=== PATIENT | male | born 1965 | race African-American/Black ===

== ENCOUNTER → 2024-04-27 14:45 | Outpatient (REF) | payer OTHER, SELFPAY | LOC: HWRAD 14:45 | PROVIDERS: ATTENDING PHYSICIAN Family Medicine | DX: E04.2 Nontoxic multinodular goiter (principal) | CPT/HCPCS: 76536 ==

== ENCOUNTER 2024-07-09 13:59 | Emergency (ER) | payer OTHER, SELFPAY ==
[2024-07-09 14:07] VITALS: BP 167/113
--- NOTE | 2024-07-09 14:15 | ED.GENMED ---
ED Provider Triage
<Pepe Isbell PA-C - Last Filed: 07/09/24 14:15>
-
Patient seen by provider in Triage?: Seen in Triage
59-year-old male presents with persistent left-sided headache
History of Present Illness
<Pepe Isbell PA-C - Last Filed: 07/09/24 14:15>
General
Chief Complaint: Headache
Time Seen by Provider: 07/09/24 14:46
<Rocky Washington PA-C - Last Filed: 07/09/24 21:38>
History of Present Illness
History of Present Illness:
59-year-old male presents the emergency department for evaluation of a persistent headache for the past 5 days, began during the [employer] game which surprised him given that the [place] were handily beating the knee or child's. States that the
headache and then subsequently vomiting began after eating a cheeseburger. Vomiting is not subsided but headache is not resolving despite [id number] migraine medications. No vision changes or neck pain at this time
Review of Systems
<Rocky Washington PA-C - Last Filed: 07/09/24 21:38>
Review of Systems
Allergies reviewed?: Yes
All Other Systems: ROS reviewed and negative except as documented in HPI and ROS
Phy Exam
<Rocky Washington PA-C - Last Filed: 07/09/24 21:38>
Physical Exam
Physical Exam:
GEN: Well appearing, NAD, WDWN
HEENT: Oral mucosa moist, no scleral icterus, no nasal congestion
Cardiac: Regular rate
Lung: No respiratory distress, no tachypnea
MSK: No gross deformity or injuries
Skin: Good color, no pallor or jaundice, no rashes
Neuro: AO x3; CN II-XII grossly intact. BUE strength 5/5 in all white, sensation intact and symmetric. BLE strength 5/5 in all white, sensation intact and symmetric
Psych: Calm, cooperative
Course
<Pepe Isbell PA-C - Last Filed: 07/09/24 14:15>
Orders/Labs/Results
Orders:
Orders
07/09/24 14:12
CT Head W/o Iv Contrast Urgent
Comment:
Reason For Exam: left sided headache
07/09/24 14:56
Complete Blood Count/With Diff Urgent
Comprehensive Metabolic Panel Urgent
07/09/24 15:24
0.9% Sodium Chloride 1000 ml [Nss] 1,000 ml IV BOLUS
07/09/24 17:03
Ketorolac [Toradol] 15 mg IV NOW STA
07/09/24 17:04
Metoclopramide [Reglan] 10 mg IV NOW STA
07/09/24 18:06
Magnesium Sulfate 2 Gram/50 ml [Magnesium Sulfate] 2 gram in 50 ml IV NOW
07/09/24 18:52
Dexamethasone Sod Phosphate [Decadron] 10 mg IV NOW STA
Abnormal Lab Results
07/09/24
14:56
WBC 3.8 L 10^3/uL
(4.8-10.8)
RDW 11.3 L %
(11.5-14.5)
Absolute Lymphs (auto) 1.1 L 10^3/uL
(1.2-3.4)
Monocytes % 11.7 H %
(1.7-9.3)
07/09/24 14:56
07/09/24 14:56
Vital Signs
Initial and Last Documented VS:
Initial Vital Signs
Temp Pulse Resp BP Pulse Ox
98.3 F 77 18 167/113 98
07/09/24 14:07 07/09/24 14:07 07/09/24 14:07 07/09/24 14:07 07/09/24 14:07
Last Documented Vital Signs
Temp Pulse Resp BP Pulse Ox
98.3 F 77 18 167/113 98
07/09/24 14:07 07/09/24 14:07 07/09/24 14:07 07/09/24 14:07 07/09/24 14:07
<Rocky Washington PA-C - Last Filed: 07/09/24 21:38>
Orders/Labs/Results
Orders:
Orders
07/09/24 14:12
CT Head W/o Iv Contrast Urgent
Comment:
Reason For Exam: left sided headache
07/09/24 14:56
Complete Blood Count/With Diff Urgent
Comprehensive Metabolic Panel Urgent
07/09/24 15:24
0.9% Sodium Chloride 1000 ml [Nss] 1,000 ml IV BOLUS
07/09/24 17:03
Ketorolac [Toradol] 15 mg IV NOW STA
07/09/24 17:04
Metoclopramide [Reglan] 10 mg IV NOW STA
07/09/24 18:06
Magnesium Sulfate 2 Gram/50 ml [Magnesium Sulfate] 2 gram in 50 ml IV NOW
07/09/24 18:52
Dexamethasone Sod Phosphate [Decadron] 10 mg IV NOW STA
Abnormal Lab Results
07/09/24
14:56
WBC 3.8 L 10^3/uL
(4.8-10.8)
RDW 11.3 L %
(11.5-14.5)
Absolute Lymphs (auto) 1.1 L 10^3/uL
(1.2-3.4)
Monocytes % 11.7 H %
(1.7-9.3)
07/09/24 14:56
07/09/24 14:56
Vital Signs
Initial and Last Documented VS:
Initial Vital Signs
Temp Pulse Resp BP Pulse Ox
98.3 F 77 18 167/113 98
07/09/24 14:07 07/09/24 14:07 07/09/24 14:07 07/09/24 14:07 07/09/24 14:07
Last Documented Vital Signs
Temp Pulse Resp BP Pulse Ox
98.3 F 77 18 167/113 98
07/09/24 14:07 07/09/24 14:07 07/09/24 14:07 07/09/24 14:07 07/09/24 14:07
<Rocky Washington PA-C - Last Filed: 07/09/24 21:38>
MDM/Problems Addressed
MDM/Problems Addressed:
Workup is reassuring, treated with migraine cocktail with significant improvement in symptoms, discharged in stable condition
<Rocky Washington PA-C - Last Filed: 07/09/24 21:38>
*Critical Care Note
Total Time (30-74mins, 75-104mins- exclusive of procedures): Not Applicable
ED Attending Note
<Pepe Isbell PA-C - Last Filed: 07/09/24 14:15>
-
Portions of this chart may have been created with voice recognition software.� Occasional wrong word or��sound alike� substitutions may have occurred due to the inherent limitations of voice recognition software.
Discharge Plan
Departure
Patient Disposition: Home (Routine Discharge)
Date of Disposition: 07/09/24
Time of Disposition: 18:52
Patient with high blood pressure during this ER visit?: No
Discharge Problem:
Acute headache
Instructions: Headache, Adult (DC)
Referrals:
Nick Damian DO [Family Provider] -
Interventions
Interventions:
*Risk Screen - Suicide Last Done: 07/09/24 19:15
*General Assessment Last Done: 07/09/24 14:07
*Neglect/Abuse Screening Last Done: 07/09/24 14:07
ED- Fall Risk Assessment Last Done: 07/09/24 19:15
*ED COVID-19 Vaccine History Last Done: 07/09/24 14:07
*Nursing Disposition Last Done: 07/09/24 19:15
ED- Neurological Assessment Last Done: 07/09/24 14:57
Discharge Date and Time
Discharge Date/Time: 07/09/24 19:16
Print Language: WELSH
[2024-07-09 15:12] VITALS: BMI 31.6
[2024-07-09 15:23] LABS: % Basophils 0.8 % (0-2); % Eosinophils 1.9 % (0-6); % Immature Granulocytes 0.3 % (0-0.5); % Lymphocytes 30.2 % (20.5-51.1); % Monocytes 11.7 % (1.7-9.3); % Neutrophils 55.1 % (42.2-75.2); Absolute Eosinophils 0.1 10^3/uL (0-0.7); Absolute Lymphocytes 1.1 10^3/uL (1.2-3.4); Absolute Monocytes 0.4 10^3/uL (0.1-0.6); Absolute Neutrophils 2.1 10^3/uL (1.4-6.5); Hematocrit 45.4 % (39.0-52.0); Hemoglobin 15.5 g/dL (13.0-18.0); Mean Corp Hgb Conc. 34.1 g/dL (33.0-37.0); Mean Corpuscular Hgb 30.8 pg (27.0-31.0); Mean Corpuscular Volume 90.3 fL (80.0-94.0); Mean Platelet Volume 9.6 fL (7.4-10.4); Nucleated Red Blood Cells % 0 % (-); Platelet Count 203 10^3/uL (130-400); Red Blood Cell Count 5.03 10^6/uL (4.70-6.10); Red Cell Dist. Width 11.3 % (11.5-14.5); White Blood Cell Count 3.8 10^3/uL (4.8-10.8)
[2024-07-09] MEDS: NSS 1000 IV (15:33)
[2024-07-09 15:44] LABS: ALT (SGPT) 35 U/L (0-50); AST (SGOT) 36 U/L (17-59); Albumin 4.3 g/dl (3.5-5.0); Alkaline Phosphatase 63 U/L (38-126); Blood Urea Nitrogen 19 mg/dl (9-20); Carbon Dioxide 29 mmol/L (22-30); Estimated Creatinine Clearance 87 ml/min; Glucose 95 mg/dl (70-99); Total Bilirubin 0.7 mg/dl (0.2-1.3); Total Protein 7.3 g/dl (6.3-8.2); eGFR > 60.00
[2024-07-09 16:02] LABS: Chloride 100 mmol/L (98-107); Potassium 3.8 mmol/L (3.5-5.1); Sodium 139 mmol/L (135-145)
[2024-07-09] MEDS: TORADOL 15 MG IV (17:16)
[2024-07-09] MEDS: REGLAN 10 MG IV (17:16)
[2024-07-09] MEDS: MAGNESIUM SULFATE 50 IV (18:11)
[2024-07-09] MEDS: DECADRON 10 MG IV (19:07)
== END 2024-07-09 19:16 | disposition home or self-care (01) ==
LOC: EMR 13:59
PROVIDERS: Physician Assistant; EMERGENCY PHYSICIAN Emergency Medicine; FAMILY PHYSICIAN Family Medicine
DX: R51.9 Headache, unspecified (principal)
CPT/HCPCS: 96374; 96375; 96361; 99284; 70450; 80053; 85025

== ENCOUNTER → 2024-09-16 06:55 | Outpatient (REF) | payer OTHER, SELFPAY | LOC: PAVMRI 06:55 | PROVIDERS: ATTENDING PHYSICIAN Family Medicine; OTHER PHYSICIAN Pain Medicine Interventional Pain Medicine; REFERRING PHYSICIAN Physical Medicine & Rehabilitation | DX: R51.9 Headache, unspecified (principal); I10 Essential (primary) hypertension | CPT/HCPCS: 70544; 70551 ==